=== PATIENT | female | born 1990 | race Caucasian/White ===

== ENCOUNTER → 2024-03-21 09:50 | Outpatient (REF) | payer BC, SELFPAY | LOC: PNTC 09:50 | PROVIDERS: ATTENDING PHYSICIAN Obstetrics & Gynecology | DX: O34.40 Maternal care for other abnormalities of cervix, unspecified trimester (principal); Z87.410 Personal history of cervical dysplasia | CPT/HCPCS: 76816; 76817 ==

== ENCOUNTER → 2024-04-22 14:24 | Outpatient (REF) | payer BC, SELFPAY | LOC: PNTC 14:24 | PROVIDERS: ATTENDING PHYSICIAN Obstetrics & Gynecology | DX: Z34.82 Encounter for supervision of other normal pregnancy, second trimester (principal); O34.40 Maternal care for other abnormalities of cervix, unspecified trimester; Z87.410 Personal history of cervical dysplasia | CPT/HCPCS: 76805; 76817 ==

== ENCOUNTER 2024-07-08 21:33 | Observation (INO) | payer BC, SELFPAY ==
[2024-07-08] MEDS: LR 1000 IV (22:00)
[2024-07-08 22:13] LABS: % Basophils 0.3 % (0-2); % Eosinophils 0.3 % (0-6); % Immature Granulocytes 0.5 % (0-0.5); % Lymphocytes 6.9 % (20.5-51.1); % Monocytes 8.9 % (1.7-9.3); % Neutrophils 83.1 % (42.2-75.2); Absolute Basophils 0.1 10^3/uL (0-0.2); Absolute Eosinophils 0.1 10^3/uL (0-0.7); Absolute Immature Granulocytes 0.1 10^3/uL (0-0.05); Absolute Monocytes 1.3 10^3/uL (0.1-0.6); Absolute Neutrophils 12.6 10^3/uL (1.4-6.5); Hematocrit 37.4 % (37.0-47.0); Hemoglobin 12.9 g/dL (12.0-16.0); Mean Corp Hgb Conc. 34.5 g/dL (33.0-37.0); Mean Corpuscular Hgb 29.6 pg (27.0-31.0); Mean Corpuscular Volume 85.8 fL (81.0-99.0); Mean Platelet Volume 9.8 fL (7.4-10.4); Nucleated Red Blood Cells % 0 %; Platelet Count 260 10^3/uL (130-400); Red Blood Cell Count 4.36 10^6/uL (4.20-5.40); Red Cell Dist. Width 12.7 % (11.5-14.5); White Blood Cell Count 15.1 10^3/uL (4.8-10.8)
[2024-07-08 22:13] LABS: Urine Albumin Trace (Neg - Trace); Urine Bilirubin Negative (Negative); Urine Character Clear (Clear); Urine Color Yellow; Urine Glucose Negative (Negative); Urine Ketone 3+ (Negative); Urine Leukocyte Negative (Negative); Urine Nitrite Negative (Negative); Urine Occult Blood Negative (Negative); Urine Specific Gravity 1.015 (<1.030); Urine Urobilinogen Negative (Neg - 1+)
[2024-07-08] MEDS: ZOFRAN 4 MG IV (22:18)
[2024-07-08 22:21] VITALS: BP 108/69; BMI 26.7
[2024-07-08 22:28] LABS: Blood Urea Nitrogen 7 mg/dl (7-17); Calcium 9.3 mg/dl (8.4-10.2); Carbon Dioxide 19 mmol/L (22-30); Chloride 103 mmol/L (98-107); Estimated Creatinine Clearance > 125 ml/min; Glucose 101 mg/dl (70-99); Potassium 3.5 mmol/L (3.5-5.1); Sodium 135 mmol/L (135-145); eGFR > 60.00
[2024-07-08 22:47] LABS: COVID-19 Antigen Negative (Negative)
[2024-07-09 00:18] LABS: Urine Albumin Negative (Neg - Trace); Urine Bilirubin Negative (Negative); Urine Character Clear (Clear); Urine Color Yellow; Urine Glucose Negative (Negative); Urine Ketone 3+ (Negative); Urine Leukocyte Negative (Negative); Urine Nitrite Negative (Negative); Urine Occult Blood Negative (Negative); Urine Specific Gravity 1.005 (<1.030); Urine Urobilinogen Negative (Neg - 1+); Urine pH 6.5 (5.0-9.0)
== END 2024-07-09 01:07 | disposition home or self-care (01) ==
LOC: LDRP 21:33
PROVIDERS: ADMITTING PHYSICIAN Obstetrics & Gynecology
DX: K52.9 Noninfective gastroenteritis and colitis, unspecified (principal); R11.2 Nausea with vomiting, unspecified; O99.343 Other mental disorders complicating pregnancy, third trimester; F41.9 Anxiety disorder, unspecified; Z3A.31 31 weeks gestation of pregnancy; G43.909 Migraine, unspecified, not intractable, without status migrainosus; Z88.1 Allergy status to other antibiotic agents; Z11.52 Encounter for screening for COVID-19
CPT/HCPCS: 80048; 81003; 85025; 87811; G0378

== ENCOUNTER 2024-08-19 07:18 | Observation (INO) | payer BC, SELFPAY ==
[2024-08-19 07:34] VITALS: BP 106/77; BMI 28.7
[2024-08-19] MEDS: LR 1000 IV (07:35)
[2024-08-19 08:44] LABS: Hematocrit 36.4 % (37.0-47.0); Hemoglobin 12.2 g/dL (12.0-16.0); Mean Corp Hgb Conc. 33.5 g/dL (33.0-37.0); Mean Corpuscular Hgb 29.3 pg (27.0-31.0); Mean Corpuscular Volume 87.3 fL (81.0-99.0); Mean Platelet Volume 10.4 fL (7.4-10.4); Platelet Count 287 10^3/uL (130-400); Red Blood Cell Count 4.17 10^6/uL (4.20-5.40); Red Cell Dist. Width 12.9 % (11.5-14.5)
[2024-08-19] MEDS: BRETHINE 250 MCG SC (08:45)
== END 2024-08-19 10:45 | disposition home or self-care (01) ==
LOC: LDRP 07:18
PROVIDERS: ADMITTING PHYSICIAN Obstetrics & Gynecology; FAMILY PHYSICIAN Family Medicine
DX: O32.1XX0 Maternal care for breech presentation, not applicable or unspecified (principal); Z3A.37 37 weeks gestation of pregnancy; Z88.1 Allergy status to other antibiotic agents
CPT/HCPCS: 59412; 85027; 86850; 86900; 86901; G0378

== ENCOUNTER 2024-08-28 07:11 | Observation (INO) | payer BC, SELFPAY ==
[2024-08-28] MEDS: LR 1000 IV (07:30)
[2024-08-28 07:48] VITALS: BP 108/79; BMI 28.9
[2024-08-28] MEDS: TYLENOL 1000 MG PO (08:28)
[2024-08-28] MEDS: BICITRA 30 ML PO (08:28)
[2024-08-28 08:40] LABS: Hematocrit 37.4 % (37.0-47.0); Hemoglobin 12.8 g/dL (12.0-16.0); Mean Corp Hgb Conc. 34.2 g/dL (33.0-37.0); Mean Corpuscular Hgb 29.8 pg (27.0-31.0); Mean Platelet Volume 10.4 fL (7.4-10.4); Platelet Count 296 10^3/uL (130-400); Red Cell Dist. Width 13.4 % (11.5-14.5); White Blood Cell Count 9.8 10^3/uL (4.8-10.8)
== END 2024-08-28 10:29 | disposition home or self-care (01) ==
LOC: LDRP 07:11
PROVIDERS: ADMITTING PHYSICIAN Obstetrics & Gynecology
DX: O32.1XX0 Maternal care for breech presentation, not applicable or unspecified (principal); Z3A.39 39 weeks gestation of pregnancy
CPT/HCPCS: 85027; 86850; 86900; 86901; G0378

== ENCOUNTER 2024-08-30 21:15 | Inpatient (IN) | payer BC, SELFPAY ==
[2024-08-30 21:25] VITALS: BP 118/78; BMI 28.9
[2024-08-30] MEDS: LR 1000 IV (21:55)
[2024-08-30 22:16] LABS: % Basophils 0.3 % (0-2); % Eosinophils 0.5 % (0-6); % Immature Granulocytes 0.4 % (0-0.5); % Monocytes 9.3 % (1.7-9.3); % Neutrophils 72.5 % (42.2-75.2); Absolute Eosinophils 0.1 10^3/uL (0-0.7); Absolute Immature Granulocytes 0.1 10^3/uL (0-0.05); Absolute Lymphocytes 2.3 10^3/uL (1.2-3.4); Absolute Monocytes 1.2 10^3/uL (0.1-0.6); Absolute Neutrophils 9.7 10^3/uL (1.4-6.5); Hematocrit 37.2 % (37.0-47.0); Hemoglobin 12.6 g/dL (12.0-16.0); Mean Corp Hgb Conc. 33.9 g/dL (33.0-37.0); Mean Corpuscular Hgb 29.2 pg (27.0-31.0); Mean Corpuscular Volume 86.1 fL (81.0-99.0); Mean Platelet Volume 9.9 fL (7.4-10.4); Nucleated Red Blood Cells % 0 %; Platelet Count 295 10^3/uL (130-400); Red Blood Cell Count 4.32 10^6/uL (4.20-5.40); Red Cell Dist. Width 13.2 % (11.5-14.5); White Blood Cell Count 13.3 10^3/uL (4.8-10.8)
[2024-08-31] MEDS: LR 1000 IV (00:01)
[2024-08-31] MEDS: FENTANYL/BUPIVACAINE 100 EPIDURAL (00:02)
[2024-08-31] MEDS: SUBLIMAZE 100 MCG EPIDURAL (00:02)
[2024-08-31] MEDS: PITOCIN 30 UNITS/NSS 500 ML IV (08:55)
[2024-08-31] MEDS: MOTRIN 600 MG PO ×2 (11:30→20:04)
[2024-08-31] MEDS: TYLENOL 650 MG PO (22:18)
[2024-09-01] MEDS: MOTRIN 600 MG PO ×4 (02:13→23:17)
[2024-09-01] MEDS: TYLENOL 650 MG PO ×2 (02:13→08:55)
[2024-09-01 05:19] LABS: Hematocrit 34.3 % (37.0-47.0); Hemoglobin 11.4 g/dL (12.0-16.0)
[2024-09-01] MEDS: SENOKOT-S 1 TABLET PO (08:43)
[2024-09-01] MEDS: PRENATAL PLUS 1 TABLET PO (08:43)
[2024-09-02] MEDS: MOTRIN 600 MG PO (07:36)
[2024-09-02] MEDS: PRENATAL PLUS 1 TABLET PO (07:36)
[2024-09-02] MEDS: SENOKOT-S 1 TABLET PO (07:36)
[2024-09-03 12:38] LABS: Syphilis/T. pallidum Ab Reflex Negative (Negative)
== END 2024-09-02 12:23 | disposition home or self-care (01) | DRG 807 ==
LOC: LDRP 21:15
PROVIDERS: Obstetrics & Gynecology; ADMITTING PHYSICIAN Obstetrics & Gynecology
PROC: 0UQMXZZ Repair Vulva, External Approach (ICD-10-PCS; 2024-08-31)
PROC: 10E0XZZ Delivery of Products of Conception, External Approach (ICD-10-PCS; 2024-08-31)
PROC: 0HQ9XZZ Repair Perineum Skin, External Approach (ICD-10-PCS; 2024-08-31)
PROC: 4A1HXCZ Monitoring of Products of Conception, Cardiac Rate, External Approach (ICD-10-PCS; 2024-08-31)
DX: O70.0 First degree perineal laceration during delivery (principal); Z37.0 Single live birth; O99.344 Other mental disorders complicating childbirth; F41.9 Anxiety disorder, unspecified; Z3A.39 39 weeks gestation of pregnancy; Z88.1 Allergy status to other antibiotic agents
CPT/HCPCS: 85014; 85018; 85025; 86780; 86850; 86900; 86901

== ENCOUNTER 2024-09-07 17:58 | Observation (INO) | payer BC, SELFPAY ==
[2024-09-07 18:09] VITALS: BP 126/89; BMI 26.8
[2024-09-07 19:40] LABS: % Basophils 0.7 % (0-2); % Eosinophils 0.7 % (0-6); % Immature Granulocytes 0.5 % (0-0.5); % Lymphocytes 19.1 % (20.5-51.1); % Monocytes 6.8 % (1.7-9.3); % Neutrophils 72.2 % (42.2-75.2); Absolute Basophils 0.1 10^3/uL (0-0.2); Absolute Eosinophils 0.1 10^3/uL (0-0.7); Absolute Immature Granulocytes 0.1 10^3/uL (0-0.05); Absolute Lymphocytes 1.8 10^3/uL (1.2-3.4); Absolute Monocytes 0.6 10^3/uL (0.1-0.6); Absolute Neutrophils 6.7 10^3/uL (1.4-6.5); Hematocrit 39.6 % (37.0-47.0); Hemoglobin 13.1 g/dL (12.0-16.0); Mean Corp Hgb Conc. 33.1 g/dL (33.0-37.0); Mean Corpuscular Hgb 28.9 pg (27.0-31.0); Mean Corpuscular Volume 87.4 fL (81.0-99.0); Mean Platelet Volume 9.2 fL (7.4-10.4); Nucleated Red Blood Cells % 0 %; Platelet Count 289 10^3/uL (130-400); Red Blood Cell Count 4.53 10^6/uL (4.20-5.40); Red Cell Dist. Width 13.3 % (11.5-14.5); White Blood Cell Count 9.4 10^3/uL (4.8-10.8)
[2024-09-07 19:55] LABS: ALT (SGPT) 27 U/L (0-35); AST (SGOT) 21 U/L (14-36); Alkaline Phosphatase 108 U/L (38-126); Blood Urea Nitrogen 14 mg/dl (7-17); Calcium 9.8 mg/dl (8.4-10.2); Carbon Dioxide 24 mmol/L (22-30); Chloride 107 mmol/L (98-107); Estimated Creatinine Clearance 125 ml/min; Glucose 95 mg/dl (70-99); Potassium 4.3 mmol/L (3.5-5.1); Sodium 141 mmol/L (135-145); Total Bilirubin 0.6 mg/dl (0.2-1.3); Total Protein 7.2 g/dl (6.3-8.2); eGFR > 60.00
[2024-09-07 19:59] LABS: Urine Protein 13 mg/dl
[2024-09-07 20:11] LABS: Protein/creatinine Ratio 1.4
== END 2024-09-07 20:59 | disposition home or self-care (01) ==
LOC: LDRP 17:58
PROVIDERS: ADMITTING PHYSICIAN Obstetrics & Gynecology
DX: R51.9 Headache, unspecified (principal); H53.9 Unspecified visual disturbance; Z88.1 Allergy status to other antibiotic agents; O99.345 Other mental disorders complicating the puerperium; F41.9 Anxiety disorder, unspecified
CPT/HCPCS: 80053; 82570; 84156; 85025; G0378